=== PATIENT | female | born 1965 | race Asian ===

== ENCOUNTER 2024-04-11 09:01 | Emergency (ER) | payer OTHER ==
[~2024-04-11] VITALS: Ht 157.5 cm; Wt 50.0 kg
[2024-04-11 09:11] VITALS: BP 155/89; PULSE 83; RESP 18; TEMP 98.2
== END 2024-04-11 09:40 | disposition home or self-care (01) ==
LOC: EMS 09:17
DX: H10.12 Acute atopic conjunctivitis, left eye (principal); I10 Essential (primary) hypertension
CPT/HCPCS: 99282; Z7502

== ENCOUNTER 2025-06-11 13:27 | Emergency (ER) | payer OTHER ==
[~2025-06-11] VITALS: Ht 152.4 cm; Wt 61.4 kg
[2025-06-11 13:32] VITALS: TEMP 98.4
[2025-06-11] MEDS ORDERED: HYDR12.54 PO (13:32)
[2025-06-11] MEDS ORDERED: FLUORESCEIN SODIUM 1 MG STRIP ONE (13:52)
[2025-06-11] MEDS: PROPARACAINE HCL 0.5% 15 ML OPHTHALMIC SOLUTION OS ONE (14:29)
[2025-06-11] MEDS: DEXTRAN 70 0.1%/HYPROMELL 0.3% 0.9 ML OPHTHALMIC SOLUTION [PF] OD ONE (14:30)
[2025-06-11 15:20] VITALS: BP 141/76; PULSE 88; RESP 18; O2SAT 99
== END 2025-06-11 15:47 | disposition home or self-care (01) ==
LOC: EMS 13:29
DX: H11.152 Pinguecula, left eye (principal); I10 Essential (primary) hypertension; Z79.899 Other long term (current) drug therapy
CPT/HCPCS: 99283